=== PATIENT | male | born 1955 | race Caucasian/White ===

== ENCOUNTER 2018-04-30 10:19 | Day surgery (SDC) | payer BC ==
[2018-04-25 12:30] VITALS: BMI 38.7
[~2018-04-30 10:19] MED LIST: LACTATED RINGERS 1,000 ML IV SCH; LIDOCAINE 1% 20 ML VIAL (10MG/ML) FOR IV START INTRADERMA PRN
[2018-04-30 10:50] VITALS: RESP 18; TEMP 98
[2018-04-30] MEDS ORDERED: LACTATED RINGERS 1,000 ML IV ONE (10:50)
[2018-04-30] MEDS ORDERED: fentaNYL (PF) 50 MCG/ML 2 ML AMP ONE (11:28)
[2018-04-30] MEDS ORDERED: MIDAZOLAM 2 MG/2 ML VIAL ONE (11:28)
[2018-04-30] MEDS ORDERED: PROPOFOL 10 MG/ML 20 ML VIAL IV ONE (11:28)
--- NOTE | 2018-04-30 11:34 | P.GSHP ---
History of Present Illness H&P Date: 04/30/18 Chief Complaint: Screening colonoscopy This a 8-year-old male referred from Dr. rascon. Patient is today for screening colonoscopy. He denies a significant GI complaints. Past Medical History Past Medical History: CVA/TIA, Hyperlipidemia, Hypertension Additional Past Medical History / Comment(s): CVA-6-7 YEARS AGO History of Any Multi-Drug Resistant Organisms: None Reported Past Surgical History: Hernia Repair Additional Past Surgical History / Comment(s): COLONOSCOPY Past Anesthesia/Blood Transfusion Reactions: No Reported Reaction Smoking Status: Former smoker - Past Family History Mother Family Medical History: No Reported History Medications and Allergies Home Medications Medication Instructions Recorded Confirmed Type Clopidogrel [Plavix] 75 mg PO DAILY 06/22/16 04/25/18 History Ergocalciferol [Vitamin D2] 25,000 unit PO MOFR 06/22/16 04/25/18 History Glucosam/Adrien-Msm1/C/[place]/Bosw 1 each PO DAILY 06/22/16 04/25/18 History [Glucosamine-Chondroitin Tablet] Simvastatin [Zocor] 1 tab PO HS 06/22/16 04/25/18 History Ubidecarenone [Co Q-10] 100 mg PO DAILY 06/22/16 04/25/18 History amLODIPine BESYLATE [Norvasc] 5 mg PO DAILY 06/22/16 04/25/18 History Allergies Allergy/AdvReac Type Severity Reaction Status Date / Time No Known Allergies Allergy Verified 04/25/18 12:25 Surgical - Exam Vital Signs Temp Pulse Resp BP Pulse Ox 98.0 F 62 18 136/80 95 04/30/18 10:48 04/30/18 10:48 04/30/18 10:48 04/30/18 10:48 04/30/18 10:48 - General well developed, no distress - Eyes PERRL - ENT normal pinna - Neck no masses - Respiratory normal expansion - Cardiovascular Rhythm: regular - Abdomen Abdomen: soft, non tender Assessment and Plan Assessment: We'll perform screening colonoscopy.
--- NOTE | 2018-04-30 11:48 | P.OP ---
Date of Procedure: 04/30/18 Preoperative Diagnosis: Screening colonoscopy Postoperative Diagnosis: Rectal polyp Transverse colon polyp Diverticulosis Procedure(s) Performed: Colonoscopy Anesthesia: MAC Surgeon: Finesse Hameed Pathology: other (Rectal polyp, transverse colon polyp) Condition: stable Disposition: PACU Description of Procedure: The patient's placed on the endoscopy table in the lateral position. He received IV sedation. Digital rectal exam was performed which revealed no abnormalities. The flexible colonoscope was then placed patient anus passed throughout the entire colon. The ileocecal valve was visualized. The cecum was normal. The ascending colon was normal. In the transverse colon there was a large polyp seen this removed with the snare. Scope was brought back and the distal transverse colon and descending colon there is moderate diverticular changes. In the sigmoid colon there is extensive diverticular changes. Scope was brought back the rectum and there were multiple small hyperplastic polyps. This is removed with a forcep. The scope was withdrawn for patient.
[2018-04-30 12:10] VITALS: BP 120/85; PULSE 78
== END 2018-04-30 12:38 | disposition home or self-care (01) ==
LOC: ORWHC2ENDO 10:19
PROVIDERS: ATTEND Surgery
DX: Z12.11 Encounter for screening for malignant neoplasm of colon (principal); K62.1 Rectal polyp; K57.30 Diverticulosis of large intestine without perforation or abscess without bleeding; D12.3 Benign neoplasm of transverse colon; I10 Essential (primary) hypertension; E78.5 Hyperlipidemia, unspecified; Z87.891 Personal history of nicotine dependence; Z79.02 Long term (current) use of antithrombotics/antiplatelets; Z86.73 Personal history of transient ischemic attack (TIA), and cerebral infarction without residual deficits; Z79.899 Other long term (current) drug therapy
CPT/HCPCS: 88305; 45385; 45380; J2250; J3010; J2704

== ENCOUNTER 2019-05-27 09:59 | Day surgery (SDC) | payer BC ==
[2019-05-23 15:48] VITALS: BMI 43.0
[~2019-05-27 09:59] MED LIST changes: -LIDOCAINE 1% 20 ML VIAL (10MG/ML) FOR IV START INTRADERMA PRN
[2019-05-27 10:20] VITALS: TEMP 98.3
[2019-05-27] MEDS ORDERED: PROPOFOL 10 MG/ML 20 ML VIAL IV ONE (10:35)
--- NOTE | 2019-05-27 10:40 | P.GSHP ---
History of Present Illness H&P Date: 05/27/19 Chief Complaint: History of colon polyps This is a 63-year-old male with history of colon polyps. Patient will stay for colonoscopy. Past Medical History Past Medical History: CVA/TIA, Hyperlipidemia, Hypertension, Osteoarthritis (OA) , Sleep Apnea/CPAP/BIPAP Additional Past Medical History / Comment(s): CVA-2010, RECOVERED. "HAS HIGH IRON." USES CPAP. RT KNEE PAIN, GETTING SERIES OF INJECTIONS, 3RD ONE TODAY. History of Any Multi-Drug Resistant Organisms: None Reported Past Surgical History: Hernia Repair Additional Past Surgical History / Comment(s): COLONOSCOPY Past Anesthesia/Blood Transfusion Reactions: No Reported Reaction Smoking Status: Former smoker - Past Family History Mother Family Medical History: No Reported History Medications and Allergies Home Medications Medication Instructions Recorded Confirmed Type Clopidogrel [Plavix] 75 mg PO DAILY 06/22/16 05/23/19 History Ergocalciferol [Vitamin D2] 50,000 unit PO MOWEFR 06/22/16 05/23/19 History Glucosam/Adrien-Msm1/C/[place]/Bosw 2 each PO DAILY 06/22/16 05/23/19 History [Glucosamine-Chondroitin Tablet] Simvastatin [Zocor] 40 mg PO HS 06/22/16 05/23/19 History Ubidecarenone [Co Q-10] 100 mg PO DAILY 06/22/16 05/23/19 History amLODIPine BESYLATE [Norvasc] 5 mg PO DAILY 06/22/16 05/27/19 History Hydrochlorothiazide [Hydrodiuril] 25 mg PO Q72H 05/23/19 05/23/19 History Allergies Allergy/AdvReac Type Severity Reaction Status Date / Time No Known Allergies Allergy Verified 05/27/19 10:11 Surgical - Exam Vital Signs Temp Pulse Resp BP Pulse Ox 98.3 F 60 18 124/68 95 05/27/19 10:16 05/27/19 10:16 05/27/19 10:16 05/27/19 10:16 05/27/19 10:16 - General well developed, well nourished, no distress - Eyes PERRL - ENT normal pinna - Neck no masses, no bruits - Respiratory normal expansion - Cardiovascular Rhythm: regular - Abdomen Abdomen: soft, non tender Assessment and Plan Assessment: History of colon polyps. We'll perform colonoscopy.
--- NOTE | 2019-05-27 10:56 | P.OP ---
Date of Procedure: 05/27/19 Preoperative Diagnosis: Chief colon polyps Postoperative Diagnosis: Multiple colon polyps Procedure(s) Performed: Colonoscopy Anesthesia: MAC Surgeon: Finesse Hameed Pathology: other (Descending and rectal polyps) Condition: stable Disposition: PACU Description of Procedure: The patient's placed on the endoscopy table lateral position. He received IV sedation. Digital rectal exam was performed which revealed no abnormalities. The flexible colonoscope was then placed patient anus and passed throughout the entire colon. The ileocecal valve sutures. The cecum ascending and transverse colon appeared normal. In the descending colon there was evidence of some small hyperplastic polyps removed with a forcep. Scope was brought back through the sigmoid colon was some diverticular changes seen. The scope was then brought back the rectum and there is multiple small hypodense of polyps seen. These were biopsied with the forcep. Another larger polyp was removed with the snare. Patient top she will was sent to recovery in stable condition.
[2019-05-27 11:00] VITALS: BP 107/70; PULSE 67; RESP 16
== END 2019-05-27 11:37 | disposition home or self-care (01) ==
LOC: ORWHC2ENDO 09:59
PROVIDERS: ATTEND Surgery
DX: Z12.11 Encounter for screening for malignant neoplasm of colon (principal); Z86.010 Personal history of colon polyps; K63.5 Polyp of colon; K62.1 Rectal polyp; K57.30 Diverticulosis of large intestine without perforation or abscess without bleeding; I10 Essential (primary) hypertension; E78.5 Hyperlipidemia, unspecified; M19.90 Unspecified osteoarthritis, unspecified site; G47.33 Obstructive sleep apnea (adult) (pediatric); Z99.89 Dependence on other enabling machines and devices; Z87.891 Personal history of nicotine dependence; Z86.73 Personal history of transient ischemic attack (TIA), and cerebral infarction without residual deficits; Z79.02 Long term (current) use of antithrombotics/antiplatelets; Z79.899 Other long term (current) drug therapy
CPT/HCPCS: 45385; 45380; 88305; J2704

== ENCOUNTER 2020-07-23 06:59 | Emergency (ER) | payer BC ==
[2020-07-23 07:05] VITALS: BP 153/98; PULSE 82; RESP 20; TEMP 98.2
[2020-07-23] MEDS ORDERED: CLOPIDOGREL 75 MG TAB PO STA (07:24)
[2020-07-23] MEDS ORDERED: amLODIPine 5 MG TAB PO STA (07:24)
--- NOTE | 2020-07-23 07:26 | ED ---
ENT HPI - General Chief complaint: ENT Stated complaint: ENT Time Seen by Provider: 07/23/20 07:16 Source: patient, family, RN notes reviewed Limitations: no limitations - History of Present Illness Initial comments: 65-year-old male presents emergency Department chief complaint of left ear ringing. Patient states he woke up around 2 AM with the symptoms. He states he has no headache dizziness blurred vision. Weakness chest pain shortness of breath nausea vomiting diarrhea constipation. Patient states that his been off his Norvasc and Plavix for 3 days he states he is getting refills today. Patient states that he became worried that it was related back or maybe he was having a stroke. Patient denies any focal weakness or any strokelike symptoms. Patient denies any trauma. He states that he wiggles his ear changes somewhat. No drainage no fevers or chills. - Related Data Home Medications Medication Instructions Recorded Confirmed Clopidogrel [Plavix] 75 mg PO DAILY 06/22/16 05/23/19 Ergocalciferol [Vitamin D2] 50,000 unit PO MOWEFR 06/22/16 05/23/19 Glucosam/Adrien-Msm1/C/[place]/Bosw 2 each PO DAILY 06/22/16 05/23/19 [Glucosamine-Chondroitin Tablet] Simvastatin [Zocor] 40 mg PO HS 06/22/16 05/23/19 Ubidecarenone [Co Q-10] 100 mg PO DAILY 06/22/16 05/23/19 amLODIPine BESYLATE [Norvasc] 5 mg PO DAILY 06/22/16 05/27/19 hydroCHLOROthiazide [Hydrodiuril] 25 mg PO Q72H 05/23/19 05/23/19 Allergies Allergy/AdvReac Type Severity Reaction Status Date / Time No Known Allergies Allergy Verified 07/23/20 07:05 Review of Systems ROS Statement: Those systems with pertinent positive or pertinent negative responses have been documented in the HPI. ROS Other: All systems not noted in ROS Statement are negative. 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 "HAS HIGH IRON." USES CPAP. RT KNEE PAIN, GETTING SERIES OF INJECTIONS, 3RD ONE TODAY. History of Any Multi-Drug Resistant Organisms: None Reported Past Surgical History: Hernia Repair Additional Past Surgical History / Comment(s): COLONOSCOPY Past Anesthesia/Blood Transfusion Reactions: No Reported Reaction Past Psychological History: No Psychological Hx Reported Smoking Status: Former smoker Past Alcohol Use History: None Reported Past Drug Use History: None Reported - Past Family History Mother Family Medical History: No Reported History General Exam Limitations: no limitations General appearance: alert, in no apparent distress Head exam: Present: atraumatic, normocephalic, normal inspection Eye exam: Present: normal appearance, PERRL, EOMI. Absent: scleral icterus, conjunctival injection, periorbital swelling ENT exam: Present: normal exam, normal oropharynx, mucous membranes moist, TM's normal bilaterally, normal external ear exam Neck exam: Present: normal inspection, full ROM. Absent: tenderness, meningismus, lymphadenopathy Respiratory exam: Present: normal lung sounds bilaterally. Absent: respiratory distress, wheezes, rales, rhonchi, stridor Cardiovascular Exam: Present: regular rate, normal rhythm, normal heart sounds. Absent: systolic murmur, diastolic murmur, rubs, gallop, clicks Neurological exam: Present: alert, oriented X3, CN II-XII intact, reflexes normal. Absent: motor sensory deficit Skin exam: Present: warm, dry, intact, normal color. Absent: rash Course Vital Signs 07/23/20 07:01 Temperature 98.2 F Pulse Rate 82 Respiratory 20 Rate Blood Pressure 153/98 O2 Sat by Pulse 98 Oximetry Medical Decision Making - Medical Decision Making 65-year-old male presented for tinnitus the left ear patient has no clear reason for this there is no signs of infection or fluid patient is on no excessive ototoxicity medications. Patient has been out of his blood pressure medication which she was provided he has refills today. Patient will follow-up with ENT on-call Dr. Barclay. Return parameters were discussed. Disposition Clinical Impression: Tinnitus, left ear, Hypertension Disposition: HOME SELF-CARE Condition: Stable Instructions (If sedation given, give patient instructions): Tinnitus (ED) Additional Instructions: Please return to the Emergency Department if symptoms worsen or any other concerns. Is patient prescribed a controlled substance at d/c from ED?: No Referrals: Jose Alfredo Zuniga MD [Primary Care Provider] - 1-2 days Dany Barclay MD [STAFF PHYSICIAN] - 1-2 days Time of Disposition: 07:26
== END 2020-07-23 07:36 | disposition home or self-care (01) ==
LOC: EC 06:59
DX: I10 Essential (primary) hypertension (principal); H93.12 Tinnitus, left ear; E78.5 Hyperlipidemia, unspecified; M19.90 Unspecified osteoarthritis, unspecified site; G47.30 Sleep apnea, unspecified; Z79.02 Long term (current) use of antithrombotics/antiplatelets; Z79.899 Other long term (current) drug therapy; Z99.89 Dependence on other enabling machines and devices; Z86.73 Personal history of transient ischemic attack (TIA), and cerebral infarction without residual deficits; Z87.891 Personal history of nicotine dependence
CPT/HCPCS: 99283

== ENCOUNTER 2021-04-19 15:05 | Inpatient (IN) | payer BC ==
[2021-04-19 15:16] LABS: Glucose,Whole Blood 149 mg/dL (75-99)
[2021-04-19 15:29] LABS: Basophils # (A) 0.1 k/uL (0-0.2); Basophils % (A) 1 %; Eosinophils # (A) 0.1 k/uL (0-0.7); Eosinophils % (A) 2 %; HCT 46.1 % (39.0-53.0); HGB 15.3 gm/dL (13.0-17.5); Lymphocytes # (A) 2.6 k/uL (1.0-4.8); Lymphocytes % (A) 30 %; MCH 28.5 pg (25.0-35.0); MCHC 33.1 g/dL (31.0-37.0); MCV 86.1 fL (80.0-100.0); Mean Platelet Volume 8.3; Monocytes # (A) 0.5 k/uL (0-1.0); Monocytes % (A) 6 %; Neutrophils # (A) 5.3 k/uL (1.3-7.7); Neutrophils % (A) 61 %; Platelet Count 209 k/uL (150-450); RBC 5.35 m/uL (4.30-5.90); RDW 13.9 % (11.5-15.5); WBC 8.8 k/uL (3.8-10.6)
--- NOTE | 2021-04-19 15:39 | CT ---
EXAMINATION TYPE: CT brain wo con for TPA DATE OF EXAM: 04/19/2021 COMPARISON: None INDICATION: Left sided numbness and paralysis. Prior CVA. DLP: 1126.8 mGycm, Automated exposure control for dose reduction was used. CONTRAST: None CT of the brain is performed utilizing 3 mm thick sections through the posterior fossa and 3 mm thick sections through the remaining calvarium. Study is performed within 24 hours of arrival to the hosp [facility]. No abnormal hyperdensity is present to suggest an acute intracranial hemorrhage. No mass lesion is evident. There is some ill-defined hypodensity within the right cerebellum. Small infarct in the mid inferior cerebellum is not excluded. There is an old infarct along the inferior left cerebellum. Ventricles and sulci are appropriate for the patient age. Paranasal sinuses and mastoid air cells within the [id number] are clear. IMPRESSIONS: 1. There may be a small infarct mid to inferior cerebellum. This could be better evaluated with MRI . 2. There is an old inferior left cerebellar infarct
[2021-04-19 15:41] LABS: ALT 32 U/L (4-49); AST 32 U/L (17-59); African American GFR (CKD) >90 (>60 ml/min/1.73 sqM); Albumin 4.3 g/dL (3.5-5.0); Alkaline Phosphatase 71 U/L (38-126); Anion Gap 9 mmol/L; Blood Urea Nitrogen 24 mg/dL (9-20); Calcium 9.5 mg/dL (8.4-10.2); Carbon Dioxide 28 mmol/L (22-30); Chloride 105 mmol/L (98-107); Glucose 143 mg/dL (74-99); Magnesium 2.2 mg/dL (1.6-2.3); Non-African American GFR(CKD) >90 (>60 ml/min/1.73 sqM); Potassium 3.2 mmol/L (3.5-5.1); Sodium 142 mmol/L (137-145); Total Bilirubin 0.5 mg/dL (0.2-1.3); Total Protein 7.1 g/dL (6.3-8.2)
[2021-04-19 15:43] LABS: Partial Thromboplastin Time 22.2 sec (22.0-30.0); Prothrombin Time 10.9 sec (9.0-12.0)
--- NOTE | 2021-04-19 16:03 | ED ---
General Adult HPI - General Chief complaint: Neuro Symptoms/Deficit Stated complaint: l side of face weakness Time Seen by Provider: 04/19/21 15:12 Source: patient, RN notes reviewed, old records reviewed Mode of arrival: ambulatory Limitations: no limitations - History of Present Illness Initial comments: Patient is a 65-year-old male with past medical history remarkable for hypertension, hyperlipidemia, arthritis, CVA/TIA with no residual deficits p resents emergency department complaining of strokelike symptoms. Last known well was approximately 11 AM, and he has had some slurred speech as well as left-sided facial droop since that time. The slurred speech has improved per family members. The facial droop is still present. Family members forced him to come to the emergency department for evaluation. Patient otherwise has no acute complaints, denying any chest pain, shortness breath, abdominal pain, nausea, vomiting. Denies any headache or weakness. States he is not on blood thinners. He does take Plavix. Patient otherwise has no acute complaints at this time. - Related Data Home Medications Medication Instructions Recorded Confirmed Clopidogrel [Plavix] 75 mg PO DAILY 06/22/16 04/19/21 Ergocalciferol [Vitamin D2] 50,000 unit PO MO 06/22/16 04/19/21 Glucosam/Adrien-Msm1/C/[place]/Bosw 1 tab PO DAILY 06/22/16 04/19/21 [Glucosamine-Chondroitin Tablet] Simvastatin [Zocor] 40 mg PO DAILY 06/22/16 04/19/21 Ubidecarenone [Co Q-10] 100 mg PO DAILY 06/22/16 04/19/21 Acetaminophen Tab [Tylenol Tab] 1,500 mg PO Q6HR PRN 04/19/21 04/19/21 amLODIPine [Norvasc] 10 mg PO DAILY 04/19/21 04/19/21 hydroCHLOROthiazide [Hydrodiuril] 50 mg PO DAILY 04/19/21 04/19/21 Allergies Allergy/AdvReac Type Severity Reaction Status Date / Time No Known Allergies Allergy Verified 04/19/21 16:00 Review of Systems ROS Statement: Those systems with pertinent positive or pertinent negative responses have been documented in the HPI. Review of Systems: CONST: Denies fever EYES: Denies blurry vision ENT: Denies nasal congestion C/V: Denies Chest pain RESP: Denies shortness of breath GI: Denies abdominal pain : Denies dysuria SKIN: Denies rash. MSK: Denies joint pain. NEURO: Endorses left-sided facial droop ROS Other: All systems not noted in ROS Statement are negative. 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 "HAS HIGH IRON." USES CPAP. RT KNEE PAIN, GETTING SERIES OF INJECTIONS, 3RD ONE TODAY. History of Any Multi-Drug Resistant Organisms: None Reported Past Surgical History: Hernia Repair Additional Past Surgical History / Comment(s): COLONOSCOPY Past Anesthesia/Blood Transfusion Reactions: No Reported Reaction Past Psychological History: No Psychological Hx Reported Smoking Status: Former smoker Past Alcohol Use History: None Reported Past Drug Use History: None Reported - Past Family History Mother Family Medical History: No Reported History General Exam - General Exam Comments Initial Comments: General: Appears in no acute distress. HEAD: Normal with no signs of head trauma. EYES: PERRLA, EOMI, conjunctiva normal, no discharge. Patient is having some mild difficulty closing his eyelid, however he does have forehead sparing concerning for central process for his current weakness. ENT: Hearing grossly intact, normal oropharynx. Patient's left sided facial droop. RESPIRATORY: Clear breath sounds bilaterally. No wheezes, rales, or rhonchi. C/V: Regular rate and rhythm. S1 and S2 auscultated, no edema, peripheral pulses 2+ and intact throughout ABD: Abd is soft, nontender, nondistended EXT: Normal range of motion, no obvious deformity SKIN: No rashes or lesions observed on exposed skin. NEURO: Alert and oriented 4. Cranial nerves II through XII are intact. No focal sensory or strength deficits. Cerebellar function is intact and normal. NIHSS is currently 1 for mild left-sided facial droop. He does have forehead sparing, making the weakness concerning for a central cause. Limitations: no limitations Course Vital Signs 04/19/21 04/19/21 04/19/21 15:09 15:11 17:07 Temperature 97.5 F L 98.2 F Pulse Rate 88 83 73 Respiratory 17 18 18 Rate Blood Pressure 121/80 122/74 118/73 O2 Sat by Pulse 94 L 100 93 L Oximetry 04/19/21 04/19/21 18:51 22:39 Temperature 98.4 F Pulse Rate 73 81 Respiratory 18 16 Rate Blood Pressure 126/82 137/69 O2 Sat by Pulse 98 99 Oximetry Medical Decision Making - Medical Decision Making Based on patient's presentation and physical exam, there is concern for an acute stroke. NIH scale was 1. Recurrent blood glucose was within normal limits. Therefore stroke activation was processed. His laboratory studies, troponin, EKG, chest x-ray will be ordered. Patient will receive a CT as well as a CT angiogram of brain and neck. The patient was in agreement with this plan. The neuro interventionists, Dr. Lizama, will be contacted. Due to the patient's last known well of being 11 AM, currently being at the foreign half-hour devin since last known well, as well as his minor symptoms, he is unlikely TPA candidate. His symptoms are improving. EKG revealed a right bundle-branch block without any signs of acute ischemia. There is no prior EKG for comparison. Laboratory studies are remarkable for a hypokalemia of 3.2, which will be replenished. Troponin is negative. Remainder of the laboratory studies are unremarkable. Patient's CT and CTA imaging revealed no acute intracranial process. Chest x- ray showed no acute cardiopulmonary process. I discussed with Dr. Valadez who was in agreement that the patient is not a TPA candidate. He requested the patient be admitted aspirin and admitted to the hospital with neurology consult. I was in agreement with this plan. I discussed with the patient to results of his imaging and laboratory studies and explained that he is appearing to have improving symptoms. He is not a TPA candidate. He expressed understanding. I advised that he be admitted to the hospital for further monitoring and evaluation by neurology tomorrow. He was in agreement with this plan. He was administered an aspirin. I spoke with the admitting team under Dr. Zuniga who accepted the patient. I spoke with Dr. Sutton who agreed to evaluate the patient. Patient will be admitted in fair condition to a telemetry bed. - Lab Data Result diagrams: 04/19/21 15:22 04/19/21 15:22 Lab Results 04/19/21 04/19/21 04/19/21 Range/Units 15:15 15:22 15:22 WBC 8.8 (3.8-10.6) k/uL RBC 5.35 (4.30-5.90) m/uL Hgb 15.3 (13.0-17.5) gm/dL Hct 46.1 (39.0-53.0) % MCV 86.1 (80.0-100.0) fL MCH 28.5 (25.0-35.0) pg MCHC 33.1 (31.0-37.0) g/dL RDW 13.9 (11.5-15.5) % Plt Count 209 (150-450) k/uL MPV 8.3 Neutrophils % 61 % Lymphocytes % 30 % Monocytes % 6 % Eosinophils % 2 % Basophils % 1 % Neutrophils # 5.3 (1.3-7.7) k/uL Lymphocytes # 2.6 (1.0-4.8) k/uL Monocytes # 0.5 (0-1.0) k/uL Eosinophils # 0.1 (0-0.7) k/uL Basophils # 0.1 (0-0.2) k/uL PT 10.9 (9.0-12.0) sec INR 1.0 (<1.2) APTT 22.2 (22.0-30.0) sec Sodium (137-145) mmol/L Potassium (3.5-5.1) mmol/L Chloride (98-107) mmol/L Carbon Dioxide (22-30) mmol/L Anion Gap mmol/L BUN (9-20) mg/dL Creatinine (0.66-1.25) mg/dL Est GFR (CKD-EPI)AfAm (>60 ml/min/1.73 sqM) Est GFR (CKD-EPI)NonAf (>60 ml/min/1.73 sqM) Glucose (74-99) mg/dL POC Glucose (mg/dL) 149 H (75-99) mg/dL POC Glu Loading Unit Operator ID Yelitza Tejada Calcium (8.4-10.2) mg/dL Magnesium (1.6-2.3) mg/dL Total Bilirubin (0.2-1.3) mg/dL AST (17-59) U/L ALT (4-49) U/L Alkaline Phosphatase (38-126) U/L Troponin I (0.000-0.034) ng/mL Total Protein (6.3-8.2) g/dL Albumin (3.5-5.0) g/dL TSH (0.465-4.680) mIU/L 04/19/21 04/19/21 04/19/21 Range/Units 15:22 15:22 15:22 WBC (3.8-10.6) k/uL RBC (4.30-5.90) m/uL Hgb (13.0-17.5) gm/dL Hct (39.0-53.0) % MCV (80.0-100.0) fL MCH (25.0-35.0) pg MCHC (31.0-37.0) g/dL RDW (11.5-15.5) % Plt Count (150-450) k/uL MPV Neutrophils % % Lymphocytes % % Monocytes % % Eosinophils % % Basophils % % Neutrophils # (1.3-7.7) k/uL Lymphocytes # (1.0-4.8) k/uL Monocytes # (0-1.0) k/uL Eosinophils # (0-0.7) k/uL Basophils # (0-0.2) k/uL PT (9.0-12.0) sec INR (<1.2) APTT (22.0-30.0) sec Sodium 142 (137-145) mmol/L Potassium 3.2 L (3.5-5.1) mmol/L Chloride 105 (98-107) mmol/L Carbon Dioxide 28 (22-30) mmol/L Anion Gap 9 mmol/L BUN 24 H (9-20) mg/dL Creatinine 0.84 (0.66-1.25) mg/dL Est GFR (CKD-EPI)AfAm >90 (>60 ml/min/1.73 sqM) Est GFR (CKD-EPI)NonAf >90 (>60 ml/min/1.73 sqM) Glucose 143 H (74-99) mg/dL POC Glucose (mg/dL) (75-99) mg/dL POC Glu Loading Unit Operator ID Calcium 9.5 (8.4-10.2) mg/dL Magnesium 2.2 (1.6-2.3) mg/dL Total Bilirubin 0.5 (0.2-1.3) mg/dL AST 32 (17-59) U/L ALT 32 (4-49) U/L Alkaline Phosphatase 71 (38-126) U/L Troponin I <0.012 (0.000-0.034) ng/mL Total Protein 7.1 (6.3-8.2) g/dL Albumin 4.3 (3.5-5.0) g/dL TSH 1.110 (0.465-4.680) mIU/L - EKG Data -: EKG Interpreted by Me EKG Comments: 12-lead Electrocardiogram Interpretation Note EKG was reviewed and interpreted by myself. 12-lead ECG performed at 1516 is interpreted by me as revealing normal sinus rhythm at a rate of 63 beats per minute. Left axis deviation. SC interval is 150 ms, QR mu-ism is 124 ms, QTc is 520 ms.. There were no ST or T wave abnormalities to suggest myocardial ischemia or injury. R wave progression across the precordium was satisfactory. By my interpretation this EKG is non-diagnostic for acute ischemia. This does show a right bundle-branch block for the patient. There is no prior EKG for c omparison. Disposition Clinical Impression: Cerebrovascular accident (CVA), Hypokalemia, History of hypertension Disposition: ADMITTED IP TO THIS HOSP
[2021-04-19] MEDS ORDERED: POTASSIUM CHLORIDE ER 20 MEQ TAB.ER PO STA (16:09)
--- NOTE | 2021-04-19 16:28 | CT ---
EXAMINATION TYPE: CT angio head neck DATE OF EXAM: 04/19/2021 HISTORY: Neuro deficit stroke left-sided numbness and paralysis COMPARISON: None CT DLP: 729.4 mGycm. Automated Exposure Control for Dose Reduction was Utilized. TECHNIQUE: CTA scan of the neck is performed with intravenous contrast, 75 mL [id number]. Axial imag es are obtained, coronal and sagittal reformatted images are reviewed. Three-D reconstructed images a re created on an independent workstation and reviewed. Source images are reviewed. FINDINGS: Carotid/Vascular Structures: There is a three-vessel arch. The right vertebral artery is dominant. Co mmon carotid arteries bifurcate into internal and external carotid arteries. Some plaquing is present bilaterally without significant flow-limiting stenosis. Vertebral arteries and internal carotid jennifer tyree are patent to the level of the skull base. Cervical of [place]: Vertebral basilar system appears normal. Posterior cerebral vasculature is unrema rkable. Internal carotid arteries bifurcate normally into A1 and M1 segments. A2 segments are normal. The anterior communicating artery is absent. Left Posterior communicating artery is patent. Right po sterior communicating artery is patent. IMPRESSION: 1. No flow-limiting stenosis bilateral carotid bifurcations. 2. Normal [place]
[2021-04-19] MEDS ORDERED: ASPIRIN 325 MG TAB PO STA (16:30)
[2021-04-19] MEDS ORDERED: ACETAMINOPHEN TAB 325 MG TAB PO PRN (16:49)
[2021-04-19 17:56] LABS: Appearance,Urine Clear (Clear); Bilirubin,Urine Negative (Negative); Blood,Urine Negative (Negative); Color,Urine Light Yellow; Glucose,Urine (UA) 2+ (Negative); Ketones,Urine Negative (Negative); Leukocyte Esterase,Urine Negative (Negative); Nitrite,Urine Negative (Negative); PH, Urine 5.5 (5.0-8.0); Protein,Urine Negative (Negative); Urobilinogen,Urine <2.0 mg/dL (<2.0)
[2021-04-19 17:57] LABS: Specific Gravity,Urine 1.048 (1.001-1.035)
--- NOTE | 2021-04-19 19:05 | P.CNNES ---
History of Present Illness Consult date: 04/19/21 Requesting physician: Yohan Barahona Reason for Consult: Stroke/TIA History of Present Illness: This is a 65-year-old stroke (left cerebellar) in 2010 without any residual deficits, hypertension, hyperlipidemia who presented to the emergency department on 04/19/2021 for slurred speech and left-sided facial droop. Last known normal was 11 AM today. Some of the history is obtained from the patients via phone. Per the patient he stated that the his noticed that his face looked asymmetrical and it was the left side and when he was in the hospital was felt that he had slurring of his speech. Per the she felt like his left eye blinking was different than the right and was felt that the left side there is a lag. Patient does notice there is redness and the left eye and he feels like it's dry. Patient denies of any headache, any the new ringing of the ears. He does have a chronic ringing in the left ear for the past 1 year and he had multiple workup which was negative. Denies any hearing loss, any nausea, vomiting, any focal weakness, numbness, difficulty swallowing. Denies any fevers. Patient home medication is Plavix 75 mg daily, amlodipine, Zocor 40 mg daily, hydrochlorothiazide, vitamin D2. Of note patient stated [place] it was cerebellar that he was notified he was out at outside facility and that he thinks he had unsteady gait during that time the, he felt like there is a black spots, and down both his eyes and he is not sure if he had any dizziness but his symptoms resolved. He was placed on Plavix and not aspirin because it was thought that the Plavix had better beneficial. He was not started on aspirin and was not tried and aspirin and did not have any ALLERGIES aspirin. Initially he was followed up with a neurologist in the beginning but not any longer. Some of the workup in the hospital consisted of: Vital signs: Blood pressure of 121/80, heart rate of 88, respiratory of 18, temperature of 97.5 Fahrenheit oral and pulse ox of 94% on room air. CBC with differential is within normal limits. Chemistry panel the only pertinent positive is the potassium is 3.2 which is slightly low and the glucose is 143 slightly elevated but not too unremarkable. Otherwise her symptoms panel is unremarkable. Calcium is 9.5, magnesium is 2.2 which is within normal limits. Basic coagulation study is within normal limits. CT of the head is reported as there may be a small infarct mid to inferior cerebellum. This could be better evaluated with MRI. There is an old inferior left cerebellar infarct. CT angiography of the head and neck was reported as no flow-limiting stenosis bilateral carotid bifurcation. Normal [place]. Per the ED note it is mentioned that the patient had NIH of a 1 for left-sided facial droop. Stroke code was activated and the patient was seen by the tele-stroke team and no IV tpa since symptoms are improving. Review of Systems Review of system: The 12 point system was reviewed and apparent positive and negative per HPI. 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 "HAS HIGH IRON." USES CPAP. RT KNEE PAIN, GETTING SERIES OF INJECTIONS, 3RD ONE TODAY. History of Any Multi-Drug Resistant Organisms: None Reported Past Surgical History: Hernia Repair Additional Past Surgical History / Comment(s): COLONOSCOPY Past Anesthesia/Blood Transfusion Reactions: No Reported Reaction Past Psychological History: No Psychological Hx Reported Smoking Status: Former smoker Past Alcohol Use History: None Reported Past Drug Use History: None Reported - Past Family History Mother Family Medical History: No Reported History Medications and Allergies Home Medications Medication Instructions Recorded Confirmed Type Clopidogrel [Plavix] 75 mg PO DAILY 06/22/16 04/19/21 History Ergocalciferol [Vitamin D2] 50,000 unit PO MO 06/22/16 04/19/21 History Glucosam/Adrien-Msm1/C/[place]/Bosw 1 tab PO DAILY 06/22/16 04/19/21 History [Glucosamine-Chondroitin Tablet] Simvastatin [Zocor] 40 mg PO DAILY 06/22/16 04/19/21 History Ubidecarenone [Co Q-10] 100 mg PO DAILY 06/22/16 04/19/21 History Acetaminophen Tab [Tylenol Tab] 1,500 mg PO Q6HR PRN 04/19/21 04/19/21 History amLODIPine [Norvasc] 10 mg PO DAILY 04/19/21 04/19/21 History hydroCHLOROthiazide [Hydrodiuril] 50 mg PO DAILY 04/19/21 04/19/21 History Allergies Allergy/AdvReac Type Severity Reaction Status Date / Time No Known Allergies Allergy Verified 04/19/21 16:00 Physical Examination - Vital Signs Vital Signs: Vital Signs Temp Pulse Resp BP Pulse Ox 04/19/21 17:07 98.2 F 73 18 118/73 93 L 04/19/21 15:11 83 18 122/74 100 04/19/21 15:09 97.5 F L 88 17 121/80 94 L Intake and Output 04/19/21 04/19/21 04/19/21 06:59 14:59 22:59 Other: Weight 131.542 kg GENERAL: The patient is lying in bed and is not in acute distress. CHEST: The heart rate is regular rate rhythm. No murmurs to auscultation. No carotid bruit bilaterally. LUNG: Clear to auscultation bilaterally no wheezing noted throughout. Not labored breathing. ABDOMEN/GI: Bowel sounds present in all 4 quadrants. No tenderness to palpation throughout. NEUROLOGICAL: Higher mental function: The patient is awake, alert, oriented to self, place and time. Patient is following commands. No aphasia and no neglect. Cranial nerves: The pupils are round, equal and reactive to light and accommodation. Has proptosis of left eye. Has redness coloration of the sclera of the left eye predominately the nasal portion. Visual bravo are full to confrontation throughout. Extraocular movement is intact no nystagmus is noted. Facial sensation is normal to touch throughout. The facial strength is normal throughout. Hearing is normal bilaterally to hand rub. Tongue is midline and moved [id number] without any difficulty. No dysarthria is noted. Shoulder shrug is normal bilaterally. Motor: Gait is antalgic (chronic right knee pain). The strength is 5 over 5 throughout. Normal tone and bulk. Cerebellum: Normal finger to nose bilaterally. Sensation: Sensation is normal to touch throughout. Reflexes (right/left): 2+ throughout. Plantars are downgoing bilaterally. Results - Laboratory Findings CBC and BMP: 04/19/21 15:22 04/19/21 15:22 Abnormal Lab Findings: Abnormal Labs 04/19/21 04/19/21 04/19/21 15:15 15:22 17:35 Potassium 3.2 L BUN 24 H Glucose 143 H POC Glucose (mg/dL) 149 H Ur Specific [place] 1.048 H Urine Glucose (UA) 2+ H Assessment and Plan Assessment: * Acute left-sided facial droop and slurred speech and seems due to acute ischemic stroke---symptoms improving with only left facial droop (NIH 1 and no IV tpa since improvement of symptoms). Rule out any other intracranial le sonia (such as mass since has left eye redness and asynchronus of blinking between eyes). * Left eye redness mostly nasal portion * History of old stroke (left cerebellar region) * Hypokalemia * History of hypertension * History of hyperlipidemia Plan: Patient was restarted the home dose of Plavix 75 mg daily and simvastatin 40 mg daily. Patient does not want to start on ASA in addition to Plavix or switch to Plavix since he states he bleeds easily on Plavix and wants to wait until MRI findings. Ordered MRI the brain and orbit w/ and w/o. I ordered lipid panel, 2-D echo, TSH level as well as hemoglobin A1c. Every 4 hours neuro checks Placed on continuous cardiac monitoring Consulted PT, OT and W[employer] STOCK CLERK Recommend consult Ophthalmology team. We'll defer the rest of the medical management to the primary team. DVT prophylaxis: Placed on subq heparin 5000U q12 hours. The plan is discussed with the patient and his via phone. Thank you for the consultation. Duarte Sutton M.D. Neuro-hospitalist Time with Patient: Greater than 30
--- NOTE | 2021-04-19 19:46 | XR ---
EXAMINATION TYPE: XR chest 2V DATE OF EXAM: 04/19/2021 COMPARISON: NONE HISTORY: Left sided facial droop TECHNIQUE: 2 views FINDINGS: Heart and mediastinum are normal. Lungs are clear. Diaphragm is normal. Bony thorax is inta ct. Pulmonary vascularity is normal. IMPRESSION: Normal chest
[2021-04-19] MEDS: HEPARIN SODIUM,PORCINE/PF 5,000 UNIT/0.5 ML SYRINGE SQ SCH (23:25)
[2021-04-20] MEDS: HEPARIN SODIUM,PORCINE/PF 5,000 UNIT/0.5 ML SYRINGE SQ SCH (08:42)
[2021-04-20] MEDS ORDERED: amLODIPine 10 MG TAB PO SCH (09:00)
[2021-04-20] MEDS ORDERED: CLOPIDOGREL 75 MG TAB PO SCH (09:00)
[2021-04-20] MEDS ORDERED: ATORVASTATIN 20 MG TAB PO SCH (09:00)
[2021-04-20] MEDS ORDERED: NON FORMULARY DRUG (Ubidecarenone [Co Q-10] 100 MG Capsule) PO SCH (09:00)
--- NOTE | 2021-04-20 10:06 | ECHOF ---
Referral Reason:stroke MEASUREMENTS -------- HEIGHT: 152.4 cm WEIGHT: 131.5 kg BP: 140/66 RVIDd: 3.4 cm (< 3.3) IVSd: 1.4 cm (0.6 - 1.1) LVIDd: 3.8 cm (3.9 - 5.3) LVPWd: 1.4 cm (0.6 - 1.1) IVSs: 1.5 cm LVIDs: 2.2 cm LVPWs: 1.5 cm LA Diam: 3.9 cm (2.7 - 3.8) Ao Diam: 3.1 cm (2.0 - 3.7) AV Cusp: 2.3 cm (1.5 - 2.6) MV E Victor Manuel: 0.39 m/s MV DecT: 171 ms MV A Victor Manuel: 0.69 m/s MV E/A Ratio: 0.57 RAP: 5.00 mmHg RVSP: 11.89 mmHg FINDINGS -------- Sinus rhythm. Morbid Obesity This was a techncally difficult study with suboptimal views, , Lumason utilized for enhancement of im ages. The left ventricular size is normal. There is mild concentric left ventricular hypertrophy. Overa ll left ventricular systolic function is normal with, an EF between 55 - 60 %. The right ventricle is normal in size. The left atrial size is normal. The right atrial size is normal. 5.0mg OF Lumason UTLIZED: 2 OR MORE WALL SEGMENTS NOT VISUALIZED. The aortic valve was not well visualized. Mild mitral regurgitation is present. The tricuspid valve was not well visualized. The pulmonic valve was not well visualized. Echo free space represents a pericardial fat pad. CONCLUSIONS -------- 1. The left ventricular size is normal. 2. There is mild concentric left ventricular hypertrophy. 3. Overall left ventricular systolic function is normal with, an EF between 55 - 60 %. 4. The right ventricle is normal in size. 5. The left atrial size is normal. 6. The right atrial size is normal. 7. 5.0mg OF Lumason UTLIZED: 2 OR MORE WALL SEGMENTS NOT VISUALIZED. 8. The aortic valve was not well visualized. 9. Mild mitral regurgitation is present. 10. The tricuspid valve was not well visualized. 11. The pulmonic valve was not well visualized. 12. Echo free space represents a pericardial fat pad. SUPERVISOR [employer]ING: Suyapa Martinez RDCS
[2021-04-20] MEDS ORDERED: Potassium Replacement Protocol 1 EACH MISC MISCELLANE PRN (12:15)
--- NOTE | 2021-04-20 13:49 | P.PN ---
Subjective Progress Note Date: 04/20/21 The patient states he is doing better today compared to yesterday but continues to have that sensation that something in on his left eye. Otherwise denies any new neurological problems. Objective - Vital Signs Vital signs: Vital Signs Temp 97.8 F 04/20/21 08:29 Pulse 82 04/20/21 12:09 Resp 16 04/20/21 12:09 BP 119/68 04/20/21 12:09 Pulse Ox 96 04/20/21 12:09 Intake & Output 04/19/21 04/20/21 04/20/21 18:59 06:59 18:59 Intake Total 240 370 Balance 240 370 Weight 131.542 kg Intake: Oral 240 370 Other: # Voids 1 1 - Exam GENERAL: The patient is lying in bed and is not in acute distress. NEUROLOGICAL: Higher mental function: The patient is awake, alert, oriented to self, place and time. Patient is following commands. No aphasia and no neglect. Cranial nerves: The pupils are round, equal and reactive to light and accommodation. Has redness coloration of the sclera of the left eye predominately the nasal portion but seems slightly better today compared to yesterday.. Visual bravo are full to confrontation throughout. Extraocular movement is intact no nystagmus is noted. Facial sensation is normal to touch throughout. The facial strength is entire left facial droop (decrease frowning, left lower facial droop and seems mild to moderate, decrease puffing of cheek over left. Otherwise normal over the right. Hearing is normal bilaterally to hand rub. Tongue is midline and moved [id number] without any difficulty. No dysarthria is noted. Shoulder shrug is normal bilaterally. Motor: Gait is deferred. The strength is 5 over 5 throughout. Normal tone and bulk. Cerebellum: Normal finger to nose bilaterally. Sensation: Sensation is normal to touch throughout. Reflexes (right/left): 2+ throughout. Plantars are downgoing bilaterally. WORK-UP: CT of the head is reported as there may be a small infarct mid to inferior cerebellum. This could be better evaluated with MRI. There is an old inferior left cerebellar infarct. CT angiography of the head and neck was reported as no flow-limiting stenosis bilateral carotid bifurcation. Normal [place]. 2-D echo was reported as mild concentric left ventricular hypertrophy. Ejection fraction 55-60%. Left atrial size is normal. TSH is 1.10 which is considered within normal limits. Hemoglobin A1c is 6.0 which is considered normal. Lipid panel: Triglyceride of 190, cholesterol is 1.5, LDL 77 and HDL of the 30. 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 No stroke per MRI Brain. * History of old stroke (left cerebellar region) * Hypokalemia--improving * History of hypertension * History of hyperlipidemia Plan: MR the brain is reported as multiple white matter foci are nonspecific and could relate to microvascular ischemia or do monitoring disease. There is no acute or subacute ischemic stroke upon the reviewing the imaging. MR the orbit is reported as no abnormality. I prescribed valacyclovir 1 g 3 times a day for 7 days and prednisone 50 mg by mouth daily for 5 days that followed by 10 mg last each day for 5 days. I gave him a manual prescription since the patient was to leave. Continue home dose of Plavix 75 mg daily and simvastatin 40 mg daily for secondary stroke prophylaxis.. Every 4 hours neuro checks Consulted PT, OT and TIMBER APPRAISER Ophthalmology team is consulted. They also ordered at an eye patch and the 2 eyedrops per the nurse. Was informed to the patient has that the patient wears eye patch at night to avoid any drying of the eye to avoid corneal ulceration. We'll defer the rest of the medical management to the primary team. DVT prophylaxis: On subq heparin 5000U q12 hours. The patient was notified that he is a follow-up with his neurologist as an outpatient as well as the primary within 1-2 weeks. There is no further workup needed at this time. The plan is discussed with the patient and his who is at bedside. Duarte Sutton M.D. Neuro-hospitalist Time with Patient: Less than 30
[2021-04-20] MEDS: POTASSIUM CHLORIDE ER 20 MEQ TAB.ER PO SCH ×2 (14:11→17:36)
[2021-04-20] MEDS ORDERED: LORazepam 2 MG/ML INJ IV PRN ×2 (15:00→15:45)
--- NOTE | 2021-04-20 15:25 | CONS ---
CONSULTATION HISTORY: This is a 65-year-old white male with a previous medical history of hypertension, arthritis, and previous CVA/TIA, who presented to the emergency room complaining of symptoms of stroke. The patient states that he can recognize slurred speech, as well as left-sided facial droop upon presentation in the emergency room. The patient's slurred speech has improved. However, the patient's facial droop is still present. In addition to the facial droop, he complains that the left eye has become red and irritated. The patient is currently scheduled for a neuroimaging later this afternoon. He states that he has no other visual complaints other than the redness and soreness in his left eye. EXAMINATION: Visual acuity measured 20/40 bilaterally. Pupils are equal, reactive to light. On penlight exam, the lids exhibited significant laxity in both the upper and lower segments bilaterally. The patient had noticeable weakness on the left side of his face. The left conjunctiva exhibited mild injection in the interpalpebral fissure. The corneas were clear. The anterior chambers were quiet and the remainder of the ophthalmic exam was otherwise unremarkable. IMPRESSION: Left-sided facial paralysis. Agree with workup for possible CVA and Coates's palsy, at this point, is high on my list of differential diagnoses. I recommend that we begin using a gel tear drop to be placed q.i.d. in his left eye, along with Lacri-Lube ointment at bedtime to provide better coverage of the cornea and prevent any drying, which is likely taking place. I will be happy to see this patient upon discharge and will determine whether more aggressive procedures would be necessary to protect the cornea during this period of time. Incidents like these are often self-limited and improve within a few months' time. It is most important to maintain corneal health and prevent drying and/or possible infection during that time. MMODL / IJN: [id number] /
[2021-04-20 16:50] LABS: Chol/HDL Ratio 4.83
--- NOTE | 2021-04-20 17:07 | MR ---
EXAMINATION TYPE: MR brain/orbits wo/w con DATE OF EXAM: 04/20/2021 COMPARISON: None HISTORY: Left facial droop and slurred speech, left eye redness and blink dysfxn CONTRAST: Standard multiplanar, multisequence MRI departmental protocol utilizing 13 mL intravenous Gadavist ga dolinium contrast. Additional images were obtained of the orbits. There is some cerebral cortical atrophy. Diffusion images show no evidence of an acute infarct. There is no mass effect nor midline shift. There is no evidence of intracranial hemorrhage. There are mult iple white matter high signal foci in the periventricular white matter of both cerebral hemispheres. These measure up to 5 mm and total number is approximately 20. The brainstem is intact. There is no evidence of retro-orbital mass. The globes are symmetric. There is normal enhancement of the venous sinuses. I see no pathologic enhancement. IMPRESSION: No orbital abnormality. Multiple white matter foci are nonspecific and could relate to microvascular ischemia or demyelinatin g disease.
[2021-04-20 17:30] VITALS: BP 115/61; PULSE 76; RESP 18; TEMP 98.2
[2021-04-20] MEDS: ARTIFICIAL TEARS-HYPROMELLOSE DROPS 15 ML BTL LEFT EYE SCH ×2 (17:36→19:04)
[2021-04-20] MEDS ORDERED: methylPREDNISolone SOD SUCCI 125 MG/2 ML VIAL IV STA (17:58)
[2021-04-20] MEDS ORDERED: ARTIFICIAL TEARS OINTMENT 3.5 GM TUBE LEFT EYE SCH (21:00)
== END 2021-04-20 19:45 | disposition home or self-care (01) | DRG 74 ==
LOC: EC 15:05 → 3SCARD 16:49
PROVIDERS: ADMIT Family Medicine; ATTEND Family Medicine
DX: G51.0 Bell's palsy (principal); E78.5 Hyperlipidemia, unspecified; E87.6 Hypokalemia; I10 Essential (primary) hypertension; G47.30 Sleep apnea, unspecified; I45.10 Unspecified right bundle-branch block; M19.90 Unspecified osteoarthritis, unspecified site; H05.20 Unspecified exophthalmos; M25.561 Pain in right knee; H93.19 Tinnitus, unspecified ear; Z79.02 Long term (current) use of antithrombotics/antiplatelets; Z79.899 Other long term (current) drug therapy; Z86.73 Personal history of transient ischemic attack (TIA), and cerebral infarction without residual deficits; Z87.19 Personal history of other diseases of the digestive system; Z98.890 Other specified postprocedural states; Z87.891 Personal history of nicotine dependence
CPT/HCPCS: 36415; 70450; 70496; 70498; 70543; 70553; 71046; 80053; 80061; 81003; 83036; 83735; 84132; 84443; 84484; 85025; 85610; 85730; 93005; 93306; 99285

== ENCOUNTER → 2023-10-05 | Day surgery (SDC) | payer BC ==
[2023-09-28 15:49] VITALS: BMI 41.5
[~2023-10-05] MED LIST changes: +PROPOFOL 10 MG/ML 20 ML VIAL IV ONE
[2023-10-05 08:01] LABS: Glucose,Whole Blood 104 mg/dL (70-110)
[2023-10-05 08:14] VITALS: TEMP 97.8
--- NOTE | 2023-10-05 08:34 | P.GSHP ---
History of Present Illness H&P Date: 10/05/23 Chief Complaint: History of colon polyps This is a 68-year-old male presents today for colonoscopy. Patient has previous history of colon polyps. His last colonoscopy was performed many years ago. Past Medical History Past Medical History: CVA/TIA, Diabetes Mellitus, Hypertension, Osteoarthritis (OA), Sleep Apnea/CPAP/BIPAP Additional Past Medical History / Comment(s): CVA-2010- no residual effects., " HIGH IRON." ,USES CPAP., HX COLON POLYPS, BORDERLINE DIABETES. History of Any Multi-Drug Resistant Organisms: None Reported Past Surgical History: Hernia Repair Additional Past Surgical History / Comment(s): COLONOSCOPY Past Anesthesia/Blood Transfusion Reactions: No Reported Reaction Past Psychological History: No Psychological Hx Reported Smoking Status: Former smoker Past Alcohol Use History: None Reported Additional Past Alcohol Use History / Comment(s): SMOKED 40 YEARS, 1 PPD, QUIT 2010 Past Drug Use History: None Reported - Past Family History Mother Family Medical History: No Reported History Medications and Allergies Home Medications Medication Instructions Recorded Confirmed Type Clopidogrel [Plavix] 75 mg PO DAILY 06/22/16 09/28/23 History Glucosam/Adrien-Msm1/C/[place]/Bosw 1 tab PO DAILY 06/22/16 09/28/23 History [Glucosamine-Chondroitin Tablet] Simvastatin [Zocor] 40 mg PO DAILY 06/22/16 09/28/23 History Losartan Potassium 50 mg PO DAILY 09/28/23 09/28/23 History [place]-3 Fatty Acids [[place]-3] 1 dose PO DAILY 09/28/23 09/28/23 History Triamterene/Hydrochlorothiazid 1 each PO DAILY 09/28/23 09/28/23 History [Triamterene-Hctz 37.5-25 mg Cp] Ubidecarenone [Co Q-10] 200 mg PO DAILY 09/28/23 09/28/23 History Allergies Allergy/AdvReac Type Severity Reaction Status Date / Time No Known Allergies Allergy Verified 09/28/23 15:07 Surgical - Exam Vital Signs Temp Pulse Resp BP Pulse Ox 97.8 F 85 18 103/64 96 10/05/23 07:50 10/05/23 07:50 10/05/23 07:50 10/05/23 07:50 10/05/23 07:50 - General well developed, well nourished, no distress - Eyes PERRL - ENT normal pinna - Neck no masses - Respiratory normal expansion - Cardiovascular Rhythm: regular - Abdomen Abdomen: soft, non tender Assessment and Plan Assessment: Stricture colon polyps. We'll perform screening colonoscopy
--- NOTE | 2023-10-05 08:51 | P.OP ---
Date of Procedure: 10/05/23 Preoperative Diagnosis: History of colon polyps Postoperative Diagnosis: Rectal polyp Procedure(s) Performed: Colonoscopy Anesthesia: MAC Surgeon: Finesse Hameed Pathology: other (Polyp) Condition: stable Disposition: PACU Description of Procedure: The patient's placed on the endoscopy table in the lateral position. He received IV sedation. Digital rectal exam was performed. This revealed no abnormalities. The flexible colonoscope was then placed patient anus and passed throughout the entire colon. The ileocecal valve was visualized. The cecum, ascending and transverse colon appeared normal. The descending and sigmoid colon appeared normal. In the rectum there was a small sessile polyp seen this removed with the cold forcep. The scope was then withdrawn from the patient.
[2023-10-05 09:05] VITALS: RESP 16
[2023-10-05 09:28] VITALS: BP 106/67; PULSE 81
== END | disposition home or self-care (01) ==
LOC: ORWHC2ENDO 07:25
PROVIDERS: ATTEND Surgery
DX: Z12.11 Encounter for screening for malignant neoplasm of colon (principal); K62.1 Rectal polyp; E11.9 Type 2 diabetes mellitus without complications; I10 Essential (primary) hypertension; M19.90 Unspecified osteoarthritis, unspecified site; G47.33 Obstructive sleep apnea (adult) (pediatric); E66.01 Morbid (severe) obesity due to excess calories; Z87.891 Personal history of nicotine dependence; Z86.73 Personal history of transient ischemic attack (TIA), and cerebral infarction without residual deficits; Z79.02 Long term (current) use of antithrombotics/antiplatelets; Z79.84 Long term (current) use of oral hypoglycemic drugs; Z79.899 Other long term (current) drug therapy; Z86.010 Personal history of colon polyps; Z68.41 Body mass index [BMI] 40.0-44.9, adult
CPT/HCPCS: 88305; 45380; J2704